=== PATIENT | male | born 1990 | race Caucasian/White ===

== ENCOUNTER 2017-10-20 02:08 | Emergency (ER) | payer OTHER ==
[~2017-10-20] VITALS: Ht 193 cm; Wt 72.0 kg
[2017-10-20 05:02] VITALS: BP 112/62
== END 2017-10-20 05:04 | disposition short-term general hospital (02) ==
LOC: ER 02:10
DX: S02.2XXA Fracture of nasal bones, initial encounter for closed fracture (principal); S01.111A Laceration without foreign body of right eyelid and periocular area, initial encounter; F12.10 Cannabis abuse, uncomplicated; F17.200 Nicotine dependence, unspecified, uncomplicated; Z98.890 Other specified postprocedural states; Y04.0XXA Assault by unarmed brawl or fight, initial encounter; Y93.89 Activity, other specified; Y92.89 Other specified places as the place of occurrence of the external cause; Y99.9 Unspecified external cause status
CPT/HCPCS: 70450; 70486; 72125; 99285